=== PATIENT | male | born 1930 | race Caucasian/White ===

== ENCOUNTER → 2017-03-30 | Outpatient (CLI) | payer MEDICARE, BC ==
[~2017-03-30] MED LIST: ACET-2031 PO; ATEN-1 PO; ATEN-65 PO; CLIN300C99 PO; CLOP75TA PO; CLOP75TA43 PO; DOC100 PO; FLUT16SP19 NS; LOS50 PO; LOSA50TA68 PO; LOSA50TA72 PO; PNEU0.5D3 IM; POLY17PO PO; PSYL3.4P2 PO; SIL50 PO; SIMV-42 PO; SIMV-49 PO; SIMV-54 PO; TAM4 PO; TAMS0.4C70 PO; TRAM-420 PO; TRAM100T30 PO; [UNRECOGNIZED DRUG - CODE] OP
[2017-03-30 08:54] LABS: LDL CHOLESTEROL 90 mg/dl
== END ==
LOC: LAB 07:42
PROVIDERS: ATTEND Internal Medicine
DX: Z12.5 Encounter for screening for malignant neoplasm of prostate (principal); I10 Essential (primary) hypertension; E78.5 Hyperlipidemia, unspecified
CPT/HCPCS: 36415; G0103; 82040; 82247; 82310; 82374; 82435; 82465; 82565; 82947; 83718; 84075; 84132; 84153; 84155; 84295; 84450; 84460; 84478; 84520

== ENCOUNTER 2017-09-05 10:28 | Emergency (ER) | payer MEDICARE, BC ==
[~2017-09-05 10:28] MED LIST changes: +COLC0.6C3 PO
--- NOTE | 2017-09-05 11:01 | ER Report ---
History and Physical Time Seen By MD: 11:01 Hx. of Stated Complaint: PATIENT REPORTS THAT HE WAS GETTING INTO HIS CAR AND HIT HIS LOWER LEG ON THE CAR DOOR CAUSING A LACERATION. HPI/ROS CHIEF COMPLAINT: Laceration HISTORY OF PRESENT ILLNESS: This is an 87-year-old male who presents to the emergency department for laceration. Patient states that he was getting into his car approximately 30 minutes prior to arrival when he caught his left lateral lower leg on the car door and lacerated his leg. Patient drove himself up here for further evaluation and sutures. There is a large triangular laceration with a hematoma to the left lateral lower leg, bleeding is controlled. Patient has no other complaints no nausea, vomiting, diarrhea. REVIEW OF SYSTEMS: Respiratory: No cough, no dyspnea. Cardiovascular: No chest pain, no palpitations. Gastrointestinal: No vomiting, no abdominal pain. Musculoskeletal: No back pain. Integumentary: As above. Allergies: Coded Allergies: celecoxib (Unverified Adverse Reaction, Unknown, dizzy/ diaphoresis, ) hydrocodone bit (Unverified Adverse Reaction, Unknown, dizziness, 02/17/15) indomethacin (Unverified Adverse Reaction, Unknown, 02/17/15) Home Meds Active Scripts Simvastatin (SIMVASTATIN) 20 Mg Tablet, 1 TAB PO HS, #90 TAB 0 Refills Prov:JUANITA LLAMAS MD 09/04/17 Tramadol Hcl (TRAMADOL HCL) 50 Mg Tablet, 1-2 TAB PO Q6H Y for PAIN, #60 TAB 0 Refills Prov:JUANITA LLAMAS MD 09/04/17 Colchicine (Colchicine) 0.6 Mg Capsule, 1-2 CAP PO DIRECTED, #3 CAP 0 Refills 2 tabs po initial dose, 1 tab po one hour later Prov:JUANITA LLAMAS MD 05/04/17 Tamsulosin Hcl (TAMSULOSIN HCL) 0.4 Mg Cap.er.24h, 1 CAP PO DAILY, #90 CAP 3 Refills Prov:JUANITA LLAMAS MD 04/25/17 Clopidogrel Bisulfate (PLAVIX) 75 Mg Tablet, 1 TAB PO QDAY, #90 TAB 3 Refills Prov:JUANITA LLAMAS MD 04/17/17 Losartan Potassium (COZAAR) 50 Mg Tablet, 1 TAB PO QDAY, #90 TAB 3 Refills Prov:JUANITA LLAMAS MD 12/07/16 Atenolol (ATENOLOL) 25 Mg Tablet, 1 TAB PO QDAY, #90 TAB 4 Refills Prov:JUANITA LLAMAS MD 10/17/16 Reported Medications Psyllium Seed (METAMUCIL) 1 Each Packet, 1 PACKET PO QDAY, PACKET 12/01/13 Past Medical/Surgical History Patient has a past medical and surgical history of CVA, hypertension, hypercholesterolemia, arthritis, osteoporosis, hip fracture secondary to a fall , wears glasses, MRSA infection, total hip 2. Reviewed Nurses Notes: Yes Hx Smoking: Yes Smoking Status: Former Smoker Exposure to Second Hand Smoke?: Yes Hx Substance Use Disorder: No Hx Alcohol Use: No Constitutional Vital Sign - Last 24 Hours 09/05/17 09/05/17 09/05/17 09/05/17 10:34 10:34 11:00 11:30 Temp 98.5 Pulse 82 Resp 20 B/P (MAP) 180/84 (116) 180/84 163/83 (109) 154/99 (117) Pulse Ox 92 O2 Delivery Room Air 09/05/17 09/05/17 12:00 12:23 B/P (MAP) 150/78 (102) 141/73 (95) Physical Exam General Appearance: The patient is alert, has no immediate need for airway protection and no current signs of toxicity. Eyes: Pupils equal and round no injection. Respiratory: Chest is non tender, lungs are clear to auscultation. Cardiac: regular rate and rhythm [ ] Gastrointestinal: Abdomen is soft and non tender, no masses, bowel sounds normal. Musculoskeletal: Neck: Neck is supple and non tender. Extremities have full range of motion and are non tender. Skin: Large triangular laceration,/skin tear to the left lateral lower leg. Bleeding is controlled there is adipose tissue visible. Hematoma to the left lateral lower leg. DIFFERENTIAL DIAGNOSIS: After history and physical exam differential diagnosis was considered for laceration and skin tear. Medical Decision Making ED Course/Re-evaluation ED Course The patient was admitted to a room. A history of his core obtained. Differential diagnoses were considered. The wound was anesthetized, irrigated and repaired as noted below. Patient tolerated well. Given the patient's history of infections and difficulties changing bandages I am having him follow up with the wound clinic at [facility]. An order was sent with the patient. The patient was instructed to continue to monitor for signs of infection, keep the dressing on for the next 24-48 hours. Changing as needed. Patient had no other questions or concerns at this time and was discharged home. Procedure: Laceration repair. Verbal consent was obtained from the patient. The 10cm laceration on the left lateral lower extremity was anesthetized in the usual fashion. The wound was scrubbed, draped and explored to its base with a gloved finger. There were no deep structures involved. No tendon injury was identified. The wound was repaired with 18 simple interrupted sutures and one mattress suture, using 5-0 Prolene. The wound repair was complex. The procedure was performed by myself. Decision to Disposition Date: Sep 05, 2017 Decision to Disposition Time: 12:18 Depart Departure Latest Vital Signs Vital Signs Date Time Temp Pulse Resp B/P (MAP) Pulse Ox O2 Delivery O2 Flow Rate FiO2 09/05/17 12:23 141/73 (95) 09/05/17 10:34 98.5 82 20 92 Room Air Impression: Primary Impression: Laceration of left lower leg Condition: Improved Disposition: HOME OR SELF-CARE Referrals: JUANITA LLAMAS MD (PCP) Patient Instructions: Acute Wound Care (ED), Laceration (ED) Additional Instructions: Drink plenty of fluids. Get plenty of rest. Keep wound dry for 48 hours. Follow up with wound care to help dressing changes and wound evaluation. Follow up with your primary care provider or the Emergency Department in the next 8-10 days to have sutures removed. Monitor for signs of infection; redness, swelling, heat, discharge, increasing pain or red streaking. Take Tylenol or Ibuprofen as needed for pain. Return to the ER with any concerns. You may change dressing as needed. Problem Qualifiers Primary Impression: Laceration of left lower leg Encounter type: initial encounter Qualified Codes: S81.812A - Laceration without foreign body, left lower leg, initial encounter ROSA MABRY-JOAN Sep 05, 2017 11:01
[2017-09-05 12:23] VITALS: BP 141/73
== END 2017-09-05 12:34 | disposition home or self-care (01) ==
LOC: ER 11:02
DX: S81.812A Laceration without foreign body, left lower leg, initial encounter (principal)
CPT/HCPCS: 99283

== ENCOUNTER 2017-09-10 07:12 | Emergency (ER) | payer MEDICARE, BC ==
--- NOTE | 2017-09-10 07:15 | ER Report ---
History and Physical Time Seen By MD: 07:14 HPI/ROS CHIEF COMPLAINT: inflamation from cut HISTORY OF PRESENT ILLNESS:Patient is an 87-year-old male who had a laceration to his lower extremity that occurred a few days ago. He did have a primary repair of that laceration up and now is concerned about possible infection which is why he presents to the emergency department today. REVIEW OF SYSTEMS: Constitutional: No fever, no chills. Respiratory: No cough, no shortness of breath. Gastrointestinal: No abdominal pain, no vomiting. Skin: Laceration to lower extremity Neurological: No headache. Allergies: Coded Allergies: celecoxib (Verified Adverse Reaction, Unknown, dizzy/ diaphoresis, 09/19/17 ) hydrocodone bit (Verified Adverse Reaction, Unknown, dizziness, 09/19/17) indomethacin (Verified Adverse Reaction, Unknown, 09/19/17) Home Meds Active Scripts Sulfamethoxazole/Trimet 800-160 Mg Tab (BACTRIM DS TABLET) 1 Each Tablet, 2 TAB PO Q12H for 7 Days, #28 MG 0 Refills TAKE ONE TABLET BY MOUTH EVERY TWELVE HOURS Prov:YO STANFORD MD 09/10/17 Simvastatin (SIMVASTATIN) 20 Mg Tablet, 1 TAB PO HS, #90 TAB 0 Refills Prov:JUANITA LLAMAS MD 09/04/17 Tramadol Hcl (TRAMADOL HCL) 50 Mg Tablet, 1-2 TAB PO Q6H Y for PAIN, #60 TAB 0 Refills Prov:JUANITA LLAMAS MD 09/04/17 Colchicine (Colchicine) 0.6 Mg Capsule, 1-2 CAP PO DIRECTED, #3 CAP 0 Refills 2 tabs po initial dose, 1 tab po one hour later Prov:JUANITA LLAMAS MD 05/04/17 Tamsulosin Hcl (TAMSULOSIN HCL) 0.4 Mg Cap.er.24h, 1 CAP PO DAILY, #90 CAP 3 Refills Prov:JUANITA LLAMAS MD 04/25/17 Clopidogrel Bisulfate (PLAVIX) 75 Mg Tablet, 1 TAB PO QDAY, #90 TAB 3 Refills Prov:JUANITA LLAMAS MD 04/17/17 Losartan Potassium (COZAAR) 50 Mg Tablet, 1 TAB PO QDAY, #90 TAB 3 Refills Prov:JUANITA LLAMAS MD 12/07/16 Atenolol (ATENOLOL) 25 Mg Tablet, 1 TAB PO QDAY, #90 TAB 4 Refills Prov:JUANITA LLAMAS MD 10/17/16 Reported Medications Psyllium Seed (METAMUCIL) 1 Each Packet, 1 PACKET PO QDAY, PACKET 12/01/13 Past Medical/Surgical History Past medical history for stroke currently on Plavix, history of benign prostatic hypertrophy, hip replacement, hypercholesterolemia, gout Hx Smoking: Yes Smoking Status: Former Smoker Exposure to Second Hand Smoke?: Yes Hx Substance Use Disorder: No Hx Alcohol Use: No Constitutional Physical Exam General/Constitutional: Patient is awake, alert, nontoxic and in no acute respiratory distress. Head: Normocephalic and atraumatic. Eyes: Conjunctival clear, Sclera are clear and anicteric. Neck: Supple, Extremities: Patient has a V-shaped laceration that has been repaired primarily with Prolene sutures to the left leg. There is an area of ecchymosis in the center of the cut. There does not appear to be any expressible pus or fluid. There is some surrounding erythema suggesting possible infection. Neuro: Alert and oriented X3, Patient has normal gait. Skin: No other rashes, skin is warm dry and well perfused. Medical Decision Making Data Points Laboratory Hematology Test 09/10/17 08:04 Red Blood Count 4.55 M/uL (4.00-5.60) Mean Corpuscular Volume 92.8 fL (80.0-96.0) Mean Corpuscular Hemoglobin 32.0 pg (26.0-33.0) Mean Corpuscular Hemoglobin Concent 34.5 g/dL (32.0-36.0) Red Cell Distribution Width 13.3 % (11.5-14.5) Mean Platelet Volume 8.2 fL (7.2-11.1) Neutrophils (%) (Auto) 67.3 % (39.4-72.5) Lymphocytes (%) (Auto) 20.6 % (17.6-49.6) Monocytes (%) (Auto) 9.8 % (4.1-12.4) Eosinophils (%) (Auto) 1.7 % (0.4-6.7) Basophils (%) (Auto) 0.6 % (0.3-1.4) Nucleated RBC Relative Count (auto) 0.0 /100WBC Neutrophils # (Auto) 4.1 K/uL (2.0-7.4) Lymphocytes # (Auto) 1.3 K/uL (1.3-3.6) Monocytes # (Auto) 0.6 K/uL (0.3-1.0) Eosinophils # (Auto) 0.1 K/uL (0.0-0.5) Basophils # (Auto) 0.0 K/uL (0.0-0.1) Nucleated RBC Absolute Count (auto) 0.00 K/uL Sodium Level 135 mmol/L (137-145) Potassium Level 4.2 mmol/L (3.5-5.0) Chloride Level 97 mmol/L (98-107) Carbon Dioxide Level 26 mmol/L (22-30) Blood Urea Nitrogen 11 mg/dl (9-21) Creatinine 0.90 mg/dl (0.66-1.25) Glomerular Filtration Rate Calc > 60.0 Random Glucose 105 mg/dl (75-110) Calcium Level 8.4 mg/dl (8.4-10.2) Chemistry Test 09/10/17 08:04 White Blood Count 6.1 k/uL (4.5-11.0) Red Blood Count 4.55 M/uL (4.00-5.60) Hemoglobin 14.6 g/dL (14.0-18.0) Hematocrit 42.2 % (42.0-52.0) Mean Corpuscular Volume 92.8 fL (80.0-96.0) Mean Corpuscular Hemoglobin 32.0 pg (26.0-33.0) Mean Corpuscular Hemoglobin Concent 34.5 g/dL (32.0-36.0) Red Cell Distribution Width 13.3 % (11.5-14.5) Platelet Count 181 K/uL (150-450) Mean Platelet Volume 8.2 fL (7.2-11.1) Neutrophils (%) (Auto) 67.3 % (39.4-72.5) Lymphocytes (%) (Auto) 20.6 % (17.6-49.6) Monocytes (%) (Auto) 9.8 % (4.1-12.4) Eosinophils (%) (Auto) 1.7 % (0.4-6.7) Basophils (%) (Auto) 0.6 % (0.3-1.4) Nucleated RBC Relative Count (auto) 0.0 /100WBC Neutrophils # (Auto) 4.1 K/uL (2.0-7.4) Lymphocytes # (Auto) 1.3 K/uL (1.3-3.6) Monocytes # (Auto) 0.6 K/uL (0.3-1.0) Eosinophils # (Auto) 0.1 K/uL (0.0-0.5) Basophils # (Auto) 0.0 K/uL (0.0-0.1) Nucleated RBC Absolute Count (auto) 0.00 K/uL Glomerular Filtration Rate Calc > 60.0 Calcium Level 8.4 mg/dl (8.4-10.2) ED Course/Re-evaluation Clinical Indication for ER IV: IV Access ED Course Plan will be to check CBC electrolytes. We will give IV dose of Rocephin. The wound was examined and every other stitch was removed no purulent material was expressed. Plan will be to place the patient on oral antibiotics and have him return in 24 hours for wound recheck. Decision to Disposition Date: Sep 10, 2017 Decision to Disposition Time: 09:00 Depart Departure Latest Vital Signs Impression: Primary Impression: Wound infection Condition: Improved Disposition: HOME OR SELF-CARE Referrals: JUANITA LLAMAS MD (PCP) New Scripts Sulfamethoxazole/Trimet 800-160 Mg Tab (BACTRIM DS TABLET) 1 Each Tablet 2 TAB PO Q12H for 7 Days, #28 MG 0 Refills TAKE ONE TABLET BY MOUTH EVERY TWELVE HOURS Prov: YO STANFORD MD 09/10/17 Patient Instructions: Cellulitis (ED) Additional Instructions: Return to the emergency department in 24 hours for wound check. Take your antibiotics as directed. If any time he developed a fever of 100.4 or higher you should be reevaluated immediately YO STANFORD MD Sep 10, 2017 07:15
[2017-09-10 08:14] LABS: PLATELET COUNT, AUTOMATED 181 K/uL (150-450)
[2017-09-10] MEDS ORDERED: SULF-198 PO (08:29)
[2017-09-10 08:31] VITALS: BP 129/62
[2017-09-10] MEDS ORDERED: cefTRIAXone 1 GM VIAL IVP SCH (09:00)
== END 2017-09-10 08:30 | disposition home or self-care (01) ==
LOC: ER 07:20
DX: L08.89 Other specified local infections of the skin and subcutaneous tissue (principal); S81.812D Laceration without foreign body, left lower leg, subsequent encounter
CPT/HCPCS: 85025; 96374; 99283; J0696; 82310; 82374; 82435; 82565; 82947; 84132; 84295; 84520

== ENCOUNTER 2017-09-11 08:56 | Emergency (ER) | payer MEDICARE, BC ==
[~2017-09-11 08:56] MED LIST changes: +SULF-198 PO
--- NOTE | 2017-09-11 08:57 | ER Report ---
History and Physical Time Seen By MD: 08:57 HPI/ROS CHIEF COMPLAINT: Follow-up wound check HISTORY OF PRESENT ILLNESS: Patient is an 87 year old male who returns for wound evaluation. Patient was seen by me yesterday after he was concerned about possible cellulitis complicating his laceration repair. Patient was found to have cellulitis at that time. Every other suture was removed to allow for any type of drainage that might occur. And patient was started on double strength Bactrim 2 tablets twice a day. He reports interval improvement of symptoms overnight. He is taking the antibiotics as prescribed. Tetanus status was updated yesterday Allergies: Coded Allergies: celecoxib (Unverified Adverse Reaction, Unknown, dizzy/ diaphoresis, ) hydrocodone bit (Unverified Adverse Reaction, Unknown, dizziness, 09/10/17) indomethacin (Unverified Adverse Reaction, Unknown, 09/10/17) Home Meds Active Scripts Sulfamethoxazole/Trimet 800-160 Mg Tab (BACTRIM DS TABLET) 1 Each Tablet, 2 TAB PO Q12H for 7 Days, #28 MG 0 Refills TAKE ONE TABLET BY MOUTH EVERY TWELVE HOURS Prov:YO STANFORD MD 09/10/17 Simvastatin (SIMVASTATIN) 20 Mg Tablet, 1 TAB PO HS, #90 TAB 0 Refills Prov:JUANITA LLAMAS MD 09/04/17 Tramadol Hcl (TRAMADOL HCL) 50 Mg Tablet, 1-2 TAB PO Q6H Y for PAIN, #60 TAB 0 Refills Prov:JUANITA LLAMAS MD 09/04/17 Colchicine (Colchicine) 0.6 Mg Capsule, 1-2 CAP PO DIRECTED, #3 CAP 0 Refills 2 tabs po initial dose, 1 tab po one hour later Prov:JUANITA LLAMAS MD 05/04/17 Tamsulosin Hcl (TAMSULOSIN HCL) 0.4 Mg Cap.er.24h, 1 CAP PO DAILY, #90 CAP 3 Refills Prov:JUANITA LLAMAS MD 04/25/17 Clopidogrel Bisulfate (PLAVIX) 75 Mg Tablet, 1 TAB PO QDAY, #90 TAB 3 Refills Prov:JUANITA LLAMAS MD 04/17/17 Losartan Potassium (COZAAR) 50 Mg Tablet, 1 TAB PO QDAY, #90 TAB 3 Refills Prov:JUANITA LLAMAS MD 12/07/16 Atenolol (ATENOLOL) 25 Mg Tablet, 1 TAB PO QDAY, #90 TAB 4 Refills Prov:JUANITA LLAMAS MD 10/17/16 Reported Medications Psyllium Seed (METAMUCIL) 1 Each Packet, 1 PACKET PO QDAY, PACKET 12/01/13 Past Medical/Surgical History Noncontributory towards this chief complaint Hx Smoking: Yes Smoking Status: Former Smoker Exposure to Second Hand Smoke?: Yes Hx Substance Use Disorder: No Hx Alcohol Use: No Physical Exam General appearance: Alert no distress. Musculoskeletal: Interval wound healing shows improvement there is minimal to no erythema now surrounding the wound. No purulent discharge from the wound. Wound dehiscence. Medical Decision Making ED Course/Re-evaluation ED Course 09/11/2017 9:03:54 am plan at this time I will be to have the patient continue antibiotics until complete. He can follow-up on September 16 off for evaluation and potential suture removal. Decision to Disposition Date: Sep 11, 2017 Decision to Disposition Time: 09:04 Depart Departure Impression: Primary Impression: Visit for wound check Condition: Improved Disposition: HOME OR SELF-CARE Referrals: JUANITA LLAMAS MD (PCP) 2 Days if symptoms persist Patient Instructions: Acute Wound Care (ED) YO STANFORD MD Sep 11, 2017 08:57
[2017-09-11 08:59] VITALS: BP 147/63
== END 2017-09-11 09:25 | disposition home or self-care (01) ==
LOC: ER 09:22
DX: Z09 Encounter for follow-up examination after completed treatment for conditions other than malignant neoplasm (principal)
CPT/HCPCS: 99281

== ENCOUNTER 2017-09-14 13:06 | Emergency (ER) | payer MEDICARE, BC ==
--- NOTE | 2017-09-14 13:16 | ER Report ---
History and Physical Time Seen By MD: 13:16 (FUNMILAYO MCGINNIS MD) Time Seen By MD: 13:30 [facility] HPI/ROS CHIEF COMPLAINT: Suture removal HISTORY OF PRESENT ILLNESS: This is an 87-year-old male who presents to the emergency department for suture removal. Patient was here last week for a large laceration to the left lateral lower extremity, he did injure himself on a car door area patient was reevaluated couple days later as he noticed some increased swelling, when he was started on Bactrim for an infection. Patient states the infection is better however the wound has changed to a deeper purplish hue. Minimal serous drainage. I did tell the patient that at this time I feel like we should leave the sutures in place. We will redress the wound, have the patient return in 2 days for reevaluation. Patient is in agreement with this. REVIEW OF SYSTEMS: Respiratory: No cough, no dyspnea. Cardiovascular: No chest pain, no palpitations. Gastrointestinal: No vomiting, no abdominal pain. Musculoskeletal: No back pain. Integument hearing: As above. [facility] Allergies: Coded Allergies: celecoxib (Verified Adverse Reaction, Unknown, dizzy/ diaphoresis, 09/11/17) hydrocodone bit (Verified Adverse Reaction, Unknown, dizziness, 09/11/17) indomethacin (Verified Adverse Reaction, Unknown, 09/11/17) Home Meds Active Scripts Sulfamethoxazole/Trimet 800-160 Mg Tab (BACTRIM DS TABLET) 1 Each Tablet, 2 TAB PO Q12H for 7 Days, #28 MG 0 Refills TAKE ONE TABLET BY MOUTH EVERY TWELVE HOURS Prov:YO STANFORD MD 09/10/17 Simvastatin (SIMVASTATIN) 20 Mg Tablet, 1 TAB PO HS, #90 TAB 0 Refills Prov:JUANITA LLAMAS MD 09/04/17 Tramadol Hcl (TRAMADOL HCL) 50 Mg Tablet, 1-2 TAB PO Q6H Y for PAIN, #60 TAB 0 Refills Prov:JUANITA LLAMAS MD 09/04/17 Colchicine (Colchicine) 0.6 Mg Capsule, 1-2 CAP PO DIRECTED, #3 CAP 0 Refills 2 tabs po initial dose, 1 tab po one hour later Prov:JUANITA LLAMAS MD 05/04/17 Tamsulosin Hcl (TAMSULOSIN HCL) 0.4 Mg Cap.er.24h, 1 CAP PO DAILY, #90 CAP 3 Refills Prov:JUANITA LLAMAS MD 04/25/17 Clopidogrel Bisulfate (PLAVIX) 75 Mg Tablet, 1 TAB PO QDAY, #90 TAB 3 Refills Prov:JUANITA LLAMAS MD 04/17/17 Losartan Potassium (COZAAR) 50 Mg Tablet, 1 TAB PO QDAY, #90 TAB 3 Refills Prov:JUANITA LLAMAS MD 12/07/16 Atenolol (ATENOLOL) 25 Mg Tablet, 1 TAB PO QDAY, #90 TAB 4 Refills Prov:JUANITA LLAMAS MD 10/17/16 Reported Medications Psyllium Seed (METAMUCIL) 1 Each Packet, 1 PACKET PO QDAY, PACKET 12/01/13 Past Medical/Surgical History The patient has a past medical and surgical history of CVA, hypertension, hypercholesterolemia, arthritis, osteoporosis, hip fracture secondary to fall, wears glasses, hard of hearing, MRSA infection, bilateral hip replacements. 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 Eyes: Pupils equal and round no injection. Respiratory: Chest is non tender, lungs are clear to auscultation. Cardiac: regular rate and rhythm Gastrointestinal: Abdomen is soft and non tender, no masses, bowel sounds normal. Musculoskeletal: Neck: Neck is supple and non tender. Extremities have full range of motion and are non tender. Skin: Healing wound to the left lower extremity, deep purple discoloration to the triangular flap, scant amount of oozing serous to serous sanguinous fluid. No purulent drainage. DIFFERENTIAL DIAGNOSIS: After history and physical exam differential diagnosis was considered for healing wound, cellulitis, and contusion. (ROSA MABRY) Medical Decision Making ED Course/Re-evaluation ED Course The patient was admitted to room. A history and physical were obtained. After evaluating the wound, I did not feel that the sutures that remained in place should come out at this time, patient continues to take the antibiotics as prescribed. I did tell the patient to go home continue to monitor for signs of infection return on Sunday for reevaluation at this time we will likely remove the remainder of the sutures. Initially when I saw this patient I did write a prescription for him to follow up with the wound care clinic as well, I did reiterate that he would benefit from wound care evaluation starting next week. The patient was in agreement with this plan of care and discharged home tonight. Patient was also instructed to return to the ER for any other concerns or worsening symptoms. Decision to Disposition Date: Sep 14, 2017 Decision to Disposition Time: 13:40 (ROSA MABRY) Depart Departure Latest Vital Signs Vital Signs Date Time Temp Pulse Resp B/P (MAP) Pulse Ox O2 Delivery O2 Flow Rate FiO2 09/14/17 13:25 98.5 78 18 117/55 93 Room Air (ROSA MABRYJOAN) Impression: Primary Impression: Laceration of left lower leg Condition: Condition Unchanged Disposition: HOME OR SELF-CARE Referrals: JUANITA LLAMAS MD (PCP) Additional Instructions: Drink plenty of fluids. Get plenty of rest. Be sure to follow up with wound care clinic as previously scheduled. Return to the ER Sunday for reevaluation of the wound and possible removal of the rest of the sutures. Return sooner if you are concerned about the wound. Continue to monitor for signs of infection, continue taking your antibiotics. Problem Qualifiers Primary Impression: Laceration of left lower leg Encounter type: subsequent encounter Qualified Codes: S81.812D - Laceration without foreign body, left lower leg, subsequent encounter FUNMILAYO MCGINNIS MD Sep 14, 2017 13:16 ROSA MABRY Sep 14, 2017 13:39
[2017-09-14 13:25] VITALS: BP 117/55
== END 2017-09-14 14:00 | disposition home or self-care (01) ==
LOC: ER 13:19
DX: S81.812D Laceration without foreign body, left lower leg, subsequent encounter (principal)
CPT/HCPCS: 99281

== ENCOUNTER 2017-09-16 07:55 | Emergency (ER) | payer MEDICARE, BC ==
[2017-09-16 08:03] VITALS: BP 136/55
--- NOTE | 2017-09-16 08:11 | ER Report ---
History and Physical Time Seen By MD: 08:10 Hx. of Stated Complaint: pt wants stitches removed from L lower leg, skin is dry and warm and healing HPI/ROS 87-year-old male who lacerated his left lower extremity on a car door 10 days ago presents to the emergency department for suture removal. He also presented to the emergency department 3 days ago for suture removal, but was told by a mid -level provider's place the sutures that the wound is not fully closed yet. The patient states he has been keeping the wound clean and dry. 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 He was given a referral for wound care clinic, but has not sought care at the clinic as of yet. Otherwise has no complaints. Remainder of the 14 system rev: Yes Allergies: Coded Allergies: celecoxib (Verified Adverse Reaction, Unknown, dizzy/ diaphoresis, 09/11/17) hydrocodone bit (Verified Adverse Reaction, Unknown, dizziness, 09/11/17) indomethacin (Verified Adverse Reaction, Unknown, 09/11/17) Home Meds Active Scripts Sulfamethoxazole/Trimet 800-160 Mg Tab (BACTRIM DS TABLET) 1 Each Tablet, 2 TAB PO Q12H for 7 Days, #28 MG 0 Refills TAKE ONE TABLET BY MOUTH EVERY TWELVE HOURS Prov:YO STANFORD MD 09/10/17 Simvastatin (SIMVASTATIN) 20 Mg Tablet, 1 TAB PO HS, #90 TAB 0 Refills Prov:JUANITA LLAMAS MD 09/04/17 Tramadol Hcl (TRAMADOL HCL) 50 Mg Tablet, 1-2 TAB PO Q6H Y for PAIN, #60 TAB 0 Refills Prov:JUANITA LLAMAS MD 09/04/17 Colchicine (Colchicine) 0.6 Mg Capsule, 1-2 CAP PO DIRECTED, #3 CAP 0 Refills 2 tabs po initial dose, 1 tab po one hour later Prov:JUANITA LLAMAS MD 05/04/17 Tamsulosin Hcl (TAMSULOSIN HCL) 0.4 Mg Cap.er.24h, 1 CAP PO DAILY, #90 CAP 3 Refills Prov:JUANITA LLAMAS MD 04/25/17 Clopidogrel Bisulfate (PLAVIX) 75 Mg Tablet, 1 TAB PO QDAY, #90 TAB 3 Refills Prov:JUANITA LLAMAS MD 04/17/17 Losartan Potassium (COZAAR) 50 Mg Tablet, 1 TAB PO QDAY, #90 TAB 3 Refills Prov:JUANITA LLAMAS MD 12/07/16 Atenolol (ATENOLOL) 25 Mg Tablet, 1 TAB PO QDAY, #90 TAB 4 Refills Prov:JUANITA LLAMAS MD 10/17/16 Reported Medications Psyllium Seed (METAMUCIL) 1 Each Packet, 1 PACKET PO QDAY, PACKET 12/01/13 Reviewed Nurses Notes: Yes Old Medical Records Reviewed: Yes Hx Smoking: Yes Smoking Status: Former Smoker Exposure to Second Hand Smoke?: Yes Hx Substance Use Disorder: No Hx Alcohol Use: No Constitutional Vital Sign - Last 24 Hours 09/16/17 08:03 Temp 97.9 Pulse 80 Resp 20 B/P (MAP) 136/55 Pulse Ox 94 O2 Delivery Room Air Physical Exam General Appearance: The patient is alert, has no immediate need for airway protection and no current signs of toxicity. Eyes: Pupils equal and round no injection. Respiratory: Chest is non tender, lungs are clear to auscultation. Cardiac: regular rate and rhythm Gastrointestinal: Abdomen is soft and non tender, no masses, bowel sounds normal. Extremities have full range of motion. Moderate pitting edema to LLE Skin: Sutures in place in LLE. There is a hematoma at the site of the sutures. No erythema. Not full closure of wound. No evidence of infection. DIFFERENTIAL DIAGNOSIS: After history and physical exam differential diagnosis was considered for wound infection, closure failure Medical Decision Making ED Course/Re-evaluation ED Course Presents to the emergency department for a wound check and suture removal. No evidence of wound infection, but given edema in lower extremity and is still not fully closed and sutures are not ready for removal at this time. I told the patient to either return to the emergency department or go to his primary care physician on Sunday, September 19 for a wound check and likely suture removal. He was also previously given a referral to the wound care clinic, and I encouraged him to follow up there as well. Decision to Disposition Date: Sep 16, 2017 Decision to Disposition Time: 08:10 Depart Departure Latest Vital Signs Vital Signs Date Time Temp Pulse Resp B/P (MAP) Pulse Ox O2 Delivery O2 Flow Rate FiO2 09/16/17 08:03 97.9 80 20 136/55 94 Room Air Impression: Primary Impression: Visit for wound check Condition: Improved Disposition: HOME OR SELF-CARE Referrals: JUANITA LLAMAS MD (PCP) Additional Instructions: Continue to keep wound clean and dry. Return to the emergency department or your primary care doctor on Sunday, September 19 for suture removal. Also, please follow-up with the wound care clinic. FUNMILAYO MCGINNIS MD Sep 16, 2017 08:11
== END 2017-09-16 08:22 | disposition home or self-care (01) ==
LOC: ER 08:11
DX: S81.812D Laceration without foreign body, left lower leg, subsequent encounter (principal)
CPT/HCPCS: 99281

== ENCOUNTER 2017-09-19 08:25 | Emergency (ER) | payer MEDICARE, BC ==
--- NOTE | 2017-09-19 08:33 | ER Report ---
History and Physical Time Seen By MD: 08:31 HPI/ROS CHIEF COMPLAINT: Wound check HISTORY OF PRESENT ILLNESS: 87-year-old male comes back to the emergency department for wound check patient was seen here 4 days ago with a repeat visit for a leg wound received by car door there were multiple sutures placed to tack down and obvious skin flap he was told to come back today for suture removal he will has no additional complaints little bit of swelling edema no pus no bleeding wound is otherwise unremarkable REVIEW OF SYSTEMS: Respiratory: No cough, no dyspnea. Cardiovascular: No chest pain, no palpitations. Gastrointestinal: No vomiting, no abdominal pain. Musculoskeletal: No back pain. Remainder of the 14 system rev: Yes Allergies: Coded Allergies: celecoxib (Verified Adverse Reaction, Unknown, dizzy/ diaphoresis, 09/19/17 ) hydrocodone bit (Verified Adverse Reaction, Unknown, dizziness, 09/19/17) indomethacin (Verified Adverse Reaction, Unknown, 09/19/17) Home Meds Active Scripts Sulfamethoxazole/Trimet 800-160 Mg Tab (BACTRIM DS TABLET) 1 Each Tablet, 2 TAB PO Q12H for 7 Days, #28 MG 0 Refills TAKE ONE TABLET BY MOUTH EVERY TWELVE HOURS Prov:YO STANFORD MD 09/10/17 Simvastatin (SIMVASTATIN) 20 Mg Tablet, 1 TAB PO HS, #90 TAB 0 Refills Prov:JUANITA LLAMAS MD 09/04/17 Tramadol Hcl (TRAMADOL HCL) 50 Mg Tablet, 1-2 TAB PO Q6H Y for PAIN, #60 TAB 0 Refills Prov:JUANITA LLAMAS MD 09/04/17 Colchicine (Colchicine) 0.6 Mg Capsule, 1-2 CAP PO DIRECTED, #3 CAP 0 Refills 2 tabs po initial dose, 1 tab po one hour later Prov:JUANITA LLAMAS MD 05/04/17 Tamsulosin Hcl (TAMSULOSIN HCL) 0.4 Mg Cap.er.24h, 1 CAP PO DAILY, #90 CAP 3 Refills Prov:JUANITA LLAMAS MD 04/25/17 Clopidogrel Bisulfate (PLAVIX) 75 Mg Tablet, 1 TAB PO QDAY, #90 TAB 3 Refills Prov:JUANITA LLAMAS MD 04/17/17 Losartan Potassium (COZAAR) 50 Mg Tablet, 1 TAB PO QDAY, #90 TAB 3 Refills Prov:JUANITA LLAMAS MD 12/07/16 Atenolol (ATENOLOL) 25 Mg Tablet, 1 TAB PO QDAY, #90 TAB 4 Refills Prov:JUANITA LLAMAS MD 10/17/16 Reported Medications Psyllium Seed (METAMUCIL) 1 Each Packet, 1 PACKET PO QDAY, PACKET 12/01/13 Reviewed Nurses Notes: Yes Old Medical Records Reviewed: Yes Hx Smoking: Yes Smoking Status: Former Smoker Exposure to Second Hand Smoke?: Yes Hx Substance Use Disorder: No Hx Alcohol Use: No Physical Exam General appearance: [Alert no distress.] Respiratory: Chest is non tender, lungs are clear to auscultation. Cardiac: Regular rate and rhythm [ ] Left leg examination on the lateral aspect of left leg just proximal to the left ankle he's got Efe angulated wound is sutured approximately 6-8 cm angulated no obvious infection the wound shows no dehiscence at this time multiple sutures placed DIFFERENTIAL DIAGNOSIS: After history and physical exam differential diagnosis was considered for wound check Medical Decision Making ED Course/Re-evaluation ED Course ED clinical course 87-year-old male here for wound check multiple sutures placed told to come back here for reevaluation and suture removal this will be performed suture removal once completed we'll put Steri-Strips over I will have the lean specialist come to the emergency room visiting the patient arranging for current and follow-up wound care management for the wound Decision to Disposition Date: Sep 19, 2017 Decision to Disposition Time: 08:33 Depart Departure Impression: Primary Impression: Visit for wound check Condition: Improved Disposition: HOME OR SELF-CARE Referrals: JUANITA LLAMAS MD (PCP) 5 Days Patient Instructions: Acute Wound Care (DC), Chronic Wound Care (DC) ILDEFONSO SANDHU MD Sep 19, 2017 08:33
[2017-09-19 09:20] VITALS: BP 118/45
== END 2017-09-19 09:40 | disposition home or self-care (01) ==
LOC: ER 08:32
DX: Z48.00 Encounter for change or removal of nonsurgical wound dressing (principal)
CPT/HCPCS: 97163; 99281

== ENCOUNTER → 2017-11-05 | Outpatient (CLI) | payer MEDICARE, BC ==
[2017-11-05 06:24] LABS: LDL CHOLESTEROL 78 mg/dl
== END ==
LOC: LAB 05:50
PROVIDERS: ATTEND Internal Medicine
DX: E78.2 Mixed hyperlipidemia (principal); I10 Essential (primary) hypertension
CPT/HCPCS: 36415; 82040; 82247; 82310; 82374; 82435; 82465; 82565; 82947; 83718; 84075; 84132; 84155; 84295; 84450; 84460; 84478; 84520

== ENCOUNTER 2018-04-24 06:26 | Emergency (ER) | payer MEDICARE, BC ==
[~2018-04-24 06:26] MED LIST changes: -LOSA50TA72 PO; +LOSA50TA80 PO
[2018-04-24] MEDS ORDERED: LOSARTAN POTASSIUM 50 MG TAB PO ONE (06:45)
[2018-04-24] MEDS ORDERED: ENT KIT ONE (06:47)
--- NOTE | 2018-04-24 07:14 | ER Report ---
History and Physical Time Seen By MD: 06:45 Hx. of Stated Complaint: PT REPORTS NOSEBLEED THAT STARTED 1 HOUR AGO. HPI/ROS CHIEF COMPLAINT: Nosebleed HISTORY OF PRESENT ILLNESS: 88-year-old male history of hypertension on Plavix comes emergency Department with a unilateral nosebleed started a couple hours ago is been seen here before for similar complaints of blood pressures 201/98 Patient states that this bleeding was nontraumatic began spontaneously he tried to stop on his own was not successful is no additional complaints. Patient is denying chest pain shortness of breath nausea vomiting diarrhea fever chills REVIEW OF SYSTEMS: Respiratory: No cough, no dyspnea. Cardiovascular: No chest pain, no palpitations. Gastrointestinal: No vomiting, no abdominal pain. Musculoskeletal: No back pain. Remainder of the 14 system rev: Yes Allergies: Coded Allergies: celecoxib (Verified Adverse Reaction, Unknown, dizzy/ diaphoresis, 04/24/18) hydrocodone bit (Verified Adverse Reaction, Unknown, dizziness, 04/24/18) indomethacin (Verified Adverse Reaction, Unknown, 04/24/18) Home Meds Active Scripts Tamsulosin Hcl (TAMSULOSIN HCL) 0.4 Mg Cap.er.24h, 1 CAP PO DAILY, #90 CAP 0 Refills Prov:JUANITA LLAMAS MD 03/25/18 Atenolol (ATENOLOL) 25 Mg Tablet, 1 TAB PO QDAY, #90 TAB 3 Refills Prov:JUANITA LLAMAS MD 12/26/17 Simvastatin (SIMVASTATIN) 20 Mg Tablet, 1 TAB PO HS for 90 Days, #90 TAB 4 Refills Prov:JUANITA LLAMAS MD 11/30/17 Losartan Potassium (COZAAR) 50 Mg Tablet, 1 TAB PO QDAY, #90 TAB 3 Refills Prov:JUANITA LLAMAS MD 11/28/17 Colchicine (Colchicine) 0.6 Mg Capsule, 1-2 CAP PO DIRECTED, #3 CAP 0 Refills 2 tabs po initial dose, 1 tab po one hour later Prov:JUANITA LLAMAS MD 05/04/17 Clopidogrel Bisulfate (PLAVIX) 75 Mg Tablet, 1 TAB PO QDAY, #90 TAB 3 Refills Prov:JUANITA LLAMAS MD 04/17/17 Discontinued Reported Medications Psyllium Seed (METAMUCIL) 1 Each Packet, 1 PACKET PO QDAY, PACKET 12/01/13 Discontinued Scripts Tramadol Hcl (TRAMADOL HCL) 50 Mg Tablet, 1-2 TAB PO Q6H PRN for PAIN, #60 TAB 0 Refills Prov:JUANITA LLAMAS MD 12/26/17 Sulfamethoxazole/Trimet 800-160 Mg Tab (BACTRIM DS TABLET) 1 Each Tablet, 2 TAB PO Q12H for 7 Days, #28 MG 0 Refills TAKE ONE TABLET BY MOUTH EVERY TWELVE HOURS Prov:YO STANFORD MD 09/10/17 Reviewed Nurses Notes: Yes Old Medical Records Reviewed: Yes Hx Smoking: Yes Smoking Status: Former Smoker Exposure to Second Hand Smoke?: Yes Hx Substance Use Disorder: No Hx Alcohol Use: No Constitutional Vital Sign - Last 24 Hours 04/24/18 06:29 Temp 97.8 Pulse 77 Resp 22 B/P (MAP) 201/94 Pulse Ox 94 O2 Delivery Room Air Physical Exam General Appearance: The patient is alert, has no immediate need for airway protection and no current signs of toxicity. [ ] Eyes: Pupils equal and round no injection. Respiratory: Chest is non tender, lungs are clear to auscultation. Cardiac: regular rate and rhythm [ ] Gastrointestinal: Abdomen is soft and non tender, no masses, bowel sounds normal. Musculoskeletal: Neck: Neck is supple and non tender. Extremities have full range of motion and are non tender. Skin: No rashes or lesions. HEENT exam patient with right-sided epistaxis dried blood on the nasal passages Rhino Rocket placed before my exam DIFFERENTIAL DIAGNOSIS: After history and physical exam differential diagnosis was considered for epistaxis I pretension Medical Decision Making ED Course/Re-evaluation ED Course 88-year-old male comes emergency Department today with epistaxis of the right naris blood pressure was 201/90 8.2 a clonidine is now 146/64 have him continue his normal blood pressure medicines Rhino Rocket was placed prior to my acquisition of the patient is had no bleeding subsequently since leave the Rhino Rocket in place have him follow-up with primary care return to have the Rhino Rocket removed necessary diagnosis of hypertension and epistaxis have him continue meds as prescribed Decision to Disposition Date: Apr 24, 2018 Decision to Disposition Time: 07:49 Depart Departure Latest Vital Signs Vital Signs Date Time Temp Pulse Resp B/P (MAP) Pulse Ox O2 Delivery O2 Flow Rate FiO2 04/24/18 06:29 97.8 77 22 201/94 94 Room Air Impression: Primary Impression: Epistaxis Additional Impression: Hypertension Condition: Improved Disposition: HOME OR SELF-CARE Referrals: JUANITA LLAMAS MD (PCP) 2 Days Patient Instructions: Nosebleed (ED) Problem Qualifiers ILDEFONSO SANDHU MD Apr 24, 2018 07:14
[2018-04-24] MEDS ORDERED: cloNIDine HCL 0.1 MG TAB PO ONE (07:15)
[2018-04-24 07:45] VITALS: BP 141/64
[2018-04-24] MEDS ORDERED: PHENYLEPHRINE 0.5% 15 ML BTL ONE (08:15)
[2018-04-24] MEDS ORDERED: EPINEPHrine 0.1% NA SOL 30 ML ONE (08:15)
[2018-04-25] MEDS ORDERED: [UNRECOGNIZED DRUG - CODE] PO (15:15)
[2018-04-25] MEDS ORDERED: TRAM-420 PO (16:04)
[2018-04-30] MEDS ORDERED: LOSA100T75 PO (15:17)
== END 2018-04-24 08:01 | disposition home or self-care (01) ==
LOC: ER 07:07
DX: R04.0 Epistaxis (principal); I10 Essential (primary) hypertension
CPT/HCPCS: 30901; 99283; A9270

== ENCOUNTER → 2018-05-14 | Outpatient (CLI) | payer MEDICARE, BC ==
[~2018-05-14] MED LIST changes: +LOSA100T75 PO; +[UNRECOGNIZED DRUG - CODE] PO
[2018-05-14 06:46] LABS: LDL CHOLESTEROL 87 mg/dl
== END ==
LOC: LAB 06:05
PROVIDERS: ATTEND Internal Medicine
DX: E78.2 Mixed hyperlipidemia (principal); R73.01 Impaired fasting glucose; I10 Essential (primary) hypertension
CPT/HCPCS: 36415; 82040; 82247; 82310; 82374; 82435; 82465; 82565; 82947; 83036; 83718; 84075; 84132; 84155; 84295; 84450; 84460; 84478; 84520

== ENCOUNTER 2018-08-20 09:35 | Emergency (ER) | payer MEDICARE, BC ==
[~2018-08-20 09:35] MED LIST changes: +TAMS0.4C25 PO
[2018-08-20] MEDS ORDERED: cefTRIAXone 1 GM VIAL IVP ONE (10:10)
--- NOTE | 2018-08-20 10:26 | ER Report ---
History and Physical Time Seen By MD: 10:12 Hx. of Stated Complaint: INJURY TO LEFT FA LAST SUNDAY, INCREASED SWELLING/REDNESS, PT REPORTS "IT'S NOT HEALING IT SHOULD" HPI/ROS CHIEF COMPLAINT: Suspected left arm infection HISTORY OF PRESENT ILLNESS: Patient is an 88-year-old male who states that on Sunday of last week he tripped and caught his left forearm dorsal aspect along the edge of a cabinet. He states that he received a skin tear. He has been treating locally with topical antibiotic. Patient is unsure of his last tetanus shot. He states that over the course of the last few days he's had noticed increased redness, pain and swelling to the left forearm with maximal swelling and tenderness just distal to the left elbow. He denies any fevers or chills. He is concerned because he's had similar episodes in the past that usually heal quickly but he is also had a history of a leg infection that required inpatient treatment. REVIEW OF SYSTEMS: Respiratory: No cough, no dyspnea. Cardiovascular: No chest pain, no palpitations. Gastrointestinal: No vomiting, no abdominal pain. Musculoskeletal: No back pain. Left arm pain Allergies: Coded Allergies: celecoxib (Verified Adverse Reaction, Unknown, dizzy/ diaphoresis, 08/20/18) hydrocodone bit (Verified Adverse Reaction, Unknown, dizziness, 08/20/18) indomethacin (Verified Adverse Reaction, Unknown, 08/20/18) Home Meds Active Scripts Cephalexin (KEFLEX) 500 Mg Capsule, 500 MG PO Q6H, #28 CAP 0 Refills TAKE ONE CAPSULE BY MOUTH EVERY SIX HOURS Prov:YO STANFORD MD 08/20/18 Tamsulosin Hcl (FLOMAX) 0.4 Mg Cap.er.24h, 1 CAP PO DAILY for 90 Days, #90 CAP 0 Refills Prov:CIERRA SINGH MD 06/20/18 Losartan Potassium (LOSARTAN POTASSIUM) 100 Mg Tablet, 100 MG PO QDAY, #90 TAB 1 Refill Prov:JUANITA LLAMAS MD 04/30/18 Tramadol Hcl (TRAMADOL HCL) 50 Mg Tablet, 1-2 TAB PO Q6H PRN for PAIN, #60 TAB 0 Refills Prov:JUANITA LLAMAS MD 04/25/18 Atenolol (ATENOLOL) 25 Mg Tablet, 1 TAB PO QDAY, #90 TAB 3 Refills Prov:JUANITA LLAMAS MD 12/26/17 Simvastatin (SIMVASTATIN) 20 Mg Tablet, 1 TAB PO HS for 90 Days, #90 TAB 4 Refills Prov:JUANITA LLAMAS MD 11/30/17 Colchicine (Colchicine) 0.6 Mg Capsule, 1-2 CAP PO DIRECTED, #3 CAP 0 Refills 2 tabs po initial dose, 1 tab po one hour later Prov:JUANITA LLAMAS MD 05/04/17 Clopidogrel Bisulfate (PLAVIX) 75 Mg Tablet, 1 TAB PO QDAY, #90 TAB 3 Refills Prov:JUANITA LLAMAS MD 04/17/17 Reported Medications Sennosides/Docusate Sodium (SENOKOT-S TABLET) 1 Each Tablet, 1 TAB PO QDAY 04/25/18 Past Medical/Surgical History Past medical history for hyperlipidemia, hypertension, peptic ulcer disease, gout and osteoarthritis, history of MRSA treated in 2011, 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 Patient is anticoagulated with Plavix. Hx Smoking: Yes Smoking Status: Former Smoker Exposure to Second Hand Smoke?: Yes Hx Substance Use Disorder: No Hx Alcohol Use: No Constitutional Vital Sign - Last 24 Hours 08/20/18 08/20/18 08/20/18 08/20/18 09:38 09:45 10:00 10:15 Temp 98.2 Pulse 70 74 72 72 Resp 20 B/P (MAP) 153/69 Pulse Ox 92 91 90 91 O2 Delivery Room Air 08/20/18 08/20/18 08/20/18 08/20/18 10:30 10:39 10:45 11:00 Pulse 62 57 50 B/P (MAP) 134/62 (86) 125/63 (83) Pulse Ox 91 90 91 08/20/18 08/20/18 08/20/18 08/20/18 11:15 11:30 12:00 12:15 Pulse 60 53 76 B/P (MAP) 144/64 (90) 165/107 (126) Pulse Ox 91 91 91 Physical Exam General Appearance: The patient is alert, has no immediate need for airway protection and no current signs of toxicity. [ ] Eyes: Pupils equal and round no injection. Musculoskeletal: Neck: Neck is supple and non tender. Extremities have full range of motion. Examination of the right forearm reveals a healing skin tear to the dorsal aspect of the left forearm no obvious purulent drainage or active bleeding however there is some fairly extensive swelling and erythema to the forearm that is warm to the touch and tender. Medical Decision Making Data Points Result Diagram: 08/20/18 1020 08/20/18 1020 Laboratory Hematology Test 08/20/18 10:20 Red Blood Count 4.53 M/uL (4.00-5.60) Mean Corpuscular Volume 93.6 fL (80.0-96.0) Mean Corpuscular Hemoglobin 32.1 pg (26.0-33.0) Mean Corpuscular Hemoglobin Concent 34.3 g/dL (32.0-36.0) Red Cell Distribution Width 13.1 % (11.5-14.5) Mean Platelet Volume 7.8 fL (7.2-11.1) Neutrophils (%) (Auto) 70.1 % (39.4-72.5) Lymphocytes (%) (Auto) 19.2 % (17.6-49.6) Monocytes (%) (Auto) 8.9 % (4.1-12.4) Eosinophils (%) (Auto) 1.2 % (0.4-6.7) Basophils (%) (Auto) 0.6 % (0.3-1.4) Nucleated RBC Relative Count (auto) 0.1 /100WBC Neutrophils # (Auto) 4.9 K/uL (2.0-7.4) Lymphocytes # (Auto) 1.3 K/uL (1.3-3.6) Monocytes # (Auto) 0.6 K/uL (0.3-1.0) Eosinophils # (Auto) 0.1 K/uL (0.0-0.5) Basophils # (Auto) 0.0 K/uL (0.0-0.1) Nucleated RBC Absolute Count (auto) 0.00 K/uL Sodium Level 134 mmol/L (137-145) Potassium Level 4.7 mmol/L (3.5-5.0) Chloride Level 98 mmol/L (98-107) Carbon Dioxide Level 24 mmol/L (22-30) Blood Urea Nitrogen 15 mg/dl (9-21) Creatinine 1.00 mg/dl (0.66-1.25) Glomerular Filtration Rate Calc > 60.0 Random Glucose 116 mg/dl (75-110) Calcium Level 8.7 mg/dl (8.4-10.2) Chemistry Test 08/20/18 10:20 White Blood Count 7.0 k/uL (4.5-11.0) Red Blood Count 4.53 M/uL (4.00-5.60) Hemoglobin 14.5 g/dL (14.0-18.0) Hematocrit 42.4 % (42.0-52.0) Mean Corpuscular Volume 93.6 fL (80.0-96.0) Mean Corpuscular Hemoglobin 32.1 pg (26.0-33.0) Mean Corpuscular Hemoglobin Concent 34.3 g/dL (32.0-36.0) Red Cell Distribution Width 13.1 % (11.5-14.5) Platelet Count 200 K/uL (150-450) Mean Platelet Volume 7.8 fL (7.2-11.1) Neutrophils (%) (Auto) 70.1 % (39.4-72.5) Lymphocytes (%) (Auto) 19.2 % (17.6-49.6) Monocytes (%) (Auto) 8.9 % (4.1-12.4) Eosinophils (%) (Auto) 1.2 % (0.4-6.7) Basophils (%) (Auto) 0.6 % (0.3-1.4) Nucleated RBC Relative Count (auto) 0.1 /100WBC Neutrophils # (Auto) 4.9 K/uL (2.0-7.4) Lymphocytes # (Auto) 1.3 K/uL (1.3-3.6) Monocytes # (Auto) 0.6 K/uL (0.3-1.0) Eosinophils # (Auto) 0.1 K/uL (0.0-0.5) Basophils # (Auto) 0.0 K/uL (0.0-0.1) Nucleated RBC Absolute Count (auto) 0.00 K/uL Glomerular Filtration Rate Calc > 60.0 Calcium Level 8.7 mg/dl (8.4-10.2) EKG/Imaging Imaging FACILITY: [facility] PATIENT NAME: Pb Hendricks : 1930 MR: [id number] V: [id number] EXAM DATE: [id number] ORDERING PHYSICIAN: YO STANFORD TECHNOLOGIST: Location: [facility] Patient: Pb Hendricks : 1930 Visit/Account:[id number] Date of Sevice: 08/20/2018 Examination: Computed tomography left humerus with contrast HISTORY: Cellulitis of the left upper extremity. Further evaluate. TECHNIQUE: Transaxial computed marked images are obtained of the left upper arm following the administration of 75 mL [id number]. Multiplanar reformatted images were created in the coronal and sagittal planes. One of the following dose optimization techniques was utilized in the performance of this exam: Automated exposure control; adjustment of the mA and/or kV according to the patient's size; or use of an iterative reconstruction technique. Specific details can be referenced in the facility's radiology CT exam operational policy. COMPARISON: None. FINDINGS: Beginning at the shoulder, there are severe changes of glenohumeral joint osteoarthritis identified. There is loss of glenoid bone stock with an acquired glenoid retroversion. There is a large glenohumeral joint effusion which contains multiple joint bodies. The effusion extends to distend the biceps tendon sheath. No axillary adenopathy is seen. There is no evidence of acute humerus fracture. Beginning in the distal third of the upper arm, there is subcutaneous edema/stranding within the posterior/dorsal subcutaneous tissues. This becomes nearly circumferential distally at the elbow joint. There is associated skin thickening. At the level of the elbow, there is a low-attenuation fluid collection overlying the olecranon with peripheral enhancement. In the short axis, this measures up to 2.8 x 2.4 cm. This measures up to 4.1 cm craniocaudally. The subcutaneous edema appears centered about this collection. Subcutaneous edema extends into the forearm and outside the [id number]. No additional area of low attenuation/fluid is seen. Appearance and location of this collection would favor an olecranon bursitis. Differential is broad and would include inflammatory arthritis such as gout. Differential would also include trauma and hemorrhagic bursitis. In the appropriate setting this could be infectious. No flecks of gas are seen. No soft tissue wound is clearly identified. No intramuscular collection is seen. IMPRESSION: 1. Low-attenuation fluid collection with peripheral enhancement overlying the ol ecranon of the left proximal ulna. There is extensive subcutaneous edema and skin thickening extending proximal and distal to this collection. CT appearance would be consistent with an olecranon bursitis. As above, this could be related to trauma, infection or inflammatory arthropathies such as gout. Clinical correlation is necessary. 2. 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 Report Dictated By: Sunil Chavez at 08/20/2018 1:00 PM Report E-Signed By: Sunil Chavez at 08/20/2018 1:09 PM [id number] ED Course/Re-evaluation ED Course 08/20/2018 10:29:42 am weekly patient looks nontoxic and is afebrile but definite cellulitis to the right upper extremity comprising mostly of the left forearm. We will treat with IV Rocephin check CBC BMP and perform IV contrast of the left upper extremity. Decision to Disposition Date: Aug 20, 2018 Decision to Disposition Time: 13:30 Depart Departure Latest Vital Signs Vital Signs Date Time Temp Pulse Resp B/P (MAP) Pulse Ox O2 Delivery O2 Flow Rate FiO2 08/20/18 12:15 76 91 08/20/18 12:00 165/107 (126) 08/20/18 09:38 98.2 20 Room Air Impression: Primary Impression: Cellulitis Condition: Improved Disposition: HOME OR SELF-CARE Referrals: CIERRA SINGH MD (PCP) New Scripts Cephalexin (KEFLEX) 500 Mg Capsule 500 MG PO Q6H, #28 CAP 0 Refills TAKE ONE CAPSULE BY MOUTH EVERY SIX HOURS Prov: YO STANFORD MD 08/20/18 Patient Instructions: Cellulitis (DC) Additional Instructions: Take your antibiotics as directed. He should take a dose tonight with dinner and then one before bedtime and then tomorrow it will be 4 times a day roughly every 6 hours. Take the antibiotics until completed. If at any point you worsen with fever or worsening pain or redness you should return to the emergency department immediately or if the symptoms have not resolved after completion of antibiotics you should be rechecked by your primary care provider or seen again in the emergency department. Problem Qualifiers Primary Impression: Cellulitis Site of cellulitis: extremity Site of cellulitis of extremity: upper extremity Laterality: left Qualified Codes: L03.114 - Cellulitis of left upper limb YO STANFORD MD Aug 20, 2018 10:26
[2018-08-20 10:34] LABS: PLATELET COUNT, AUTOMATED 200 K/uL (150-450)
[2018-08-20] MEDS ORDERED: IOPAMIDOL 76% 100 ML INFUS BTL 100 ML ONE (11:31)
[2018-08-20 12:00] VITALS: BP 165/107
--- NOTE | 2018-08-20 13:15 | RADIOLOGY IMAGING REPORT ---
FACILITY: [facility] PATIENT NAME: Pb Hendricks : 1930 MR: [id number] V: [id number] EXAM DATE: ORDERING PHYSICIAN: YO STANFORD TECHNOLOGIST: Location: [facility] Patient: Pb Hendricks : 1930 Visit/Account:[id number] Date of Sevice: 08/20/2018 Examination: Computed tomography left humerus with contrast HISTORY: Cellulitis of the left upper extremity. Further evaluate. TECHNIQUE: Transaxial computed marked images are obtained of the left upper arm following the adminis tration of 75 mL Isovue-370. Multiplanar reformatted images were created in the coronal and sagittal planes. One of the following dose optimization techniques was utilized in the performance of this exam: Autom ated exposure control; adjustment of the mA and/or kV according to the patient's size; or use of an i terative reconstruction technique. Specific details can be referenced in the facility's radiology C T exam operational policy. COMPARISON: None. FINDINGS: Beginning at the shoulder, there are severe changes of glenohumeral joint osteoarthritis identified. There is loss of glenoid bone stock with an acquired glenoid retroversion. There is a large glenohume ral joint effusion which contains multiple joint bodies. The effusion extends to distend the biceps t endon sheath. No axillary adenopathy is seen. There is no evidence of acute humerus fracture. Beginning in the distal third of the upper arm, there is subcutaneous edema/stranding within the post erior/dorsal subcutaneous tissues. This becomes nearly circumferential distally at the elbow joint. T here is associated skin thickening. At the level of the elbow, there is a low-attenuation fluid colle ction overlying the olecranon with peripheral enhancement. In the short axis, this measures up to 2.8 x 2.4 cm. This measures up to 4.1 cm craniocaudally. The subcutaneous edema appears centered about t his collection. Subcutaneous edema extends into the forearm and outside the [id number]. No additio nal area of low attenuation/fluid is seen. Appearance and location of this collection would favor an olecranon bursitis. Differential is broad and would include inflammatory arthritis such as gout. Diff erential would also include trauma and hemorrhagic bursitis. In the appropriate setting this could be infectious. No flecks of gas are seen. No soft tissue wound is clearly identified. No intramuscular collection is seen. IMPRESSION: 1. Low-attenuation fluid collection with peripheral enhancement overlying the olecranon of the left p roximal ulna. There is extensive subcutaneous edema and skin thickening extending proximal and distal to this collection. CT appearance would be consistent with an olecranon bursitis. As above, this cou ld be related to trauma, infection or inflammatory arthropathies such as gout. Clinical correlation i s necessary. 2. 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 Report Dictated By: Sunil Chavez at 08/20/2018 1:00 PM Report E-Signed By: Sunil Chavez at 08/20/2018 1:09 PM WSN:[id number]
--- NOTE | 2018-08-20 13:27 | RADIOLOGY IMAGING REPORT ---
FACILITY: [facility] PATIENT NAME: Pb Hendricks : 1930 MR: [id number] V: [id number] EXAM DATE: ORDERING PHYSICIAN: YO STANFORD TECHNOLOGIST: Location: [facility] Patient: Pb Hendricks : 1930 Visit/Account:[id number] Date of Sevice: 08/20/2018 Examination: Computed tomography left elbow and left forearm with contrast HISTORY: Left upper extremity cellulitis. Evaluate for abscess. TECHNIQUE: Transaxial computed tomography images are obtained of the left elbow and left forearm. The se images were obtained in conjunction with a left upper arm CT scan. Images were obtained following the administration of 75 mL of Isovue-370. Multiplanar reformatted images were created in the coronal and sagittal planes. One of the following dose optimization techniques was utilized in the performance of this exam: Autom ated exposure control; adjustment of the mA and/or kV according to the patient's size; or use of an i terative reconstruction technique. Specific details can be referenced in the facility's radiology C T exam operational policy. COMPARISON: Exam is reviewed in conjunction with today's CT upper arm study. FINDINGS: In keeping with today's upper arm findings, there is circumferential subcutaneous edema helene ntified about the left elbow. This extends proximally into the upper arm and extends distally along t he forearm. There is associated skin thickening. The edema and skin thickening appears centered about a low-attenuation collection which overlies the olecranon of the proximal ulna. This measures 4.1 x 2.8 x 2.4 cm in size and is consistent with an olecranon bursa. Findings are consistent with an olecr anon bursitis. Etiologies would include inflammatory arthropathies such as gout, trauma or infection. Clinical correlation is necessary. No flecks of gas are seen. At the elbow, the joint space is maintained. No evidence of osteoarthritis. No joint effusion is seen . The subcutaneous edema extends circumferential into the forearm. This extends to the edge of the fiel d-of-view just proximal to the wrist. No other well-defined fluid collection is seen. The flexor and extensor compartment musculature appears normal. No osseous abnormality is identified of the included portions of the radius and ulna. The most distal radius and ulna are excluded from the image. No flecks of gas are seen within the soft tissues. IMPRESSION: 1. CT findings compatible with olecranon bursitis overlying the left elbow with extensive subcutaneou s edema and skin thickening. Differential would include inflammatory arthropathies such as gout, trau ma or infection. Correlate clinically. 2. No evidence of soft tissue gas or additional suspicious fluid collections. 3. Normal elbow joint. No joint effusion or bone destruction. No evidence of septic arthropathy. 4. Unremarkable appearance of the included radius, ulna and forearm musculature. Report Dictated By: Sunil Chavez at 08/20/2018 1:10 PM Report E-Signed By: Sunil Chavez at 08/20/2018 1:23 PM WSN:[id number]
--- NOTE | 2018-08-20 13:28 | RADIOLOGY IMAGING REPORT ---
FACILITY: [facility] PATIENT NAME: Pb Hendricks : 1930 MR: [id number] V: [id number] EXAM DATE: ORDERING PHYSICIAN: YO STANFORD TECHNOLOGIST: [place] [facility] [place] Pb Hendricks : 1930 Visit/Account:[id number] Date of Sevice: 08/20/2018 Examination: Computed tomography left elbow and left forearm with contrast HISTORY: Left upper extremity cellulitis. Evaluate for abscess. TECHNIQUE: Transaxial computed tomography images are obtained of the left elbow and left forearm. The se images were obtained in conjunction with a left upper arm CT scan. Images were obtained following the administration of 75 mL of Isovue-370. Multiplanar reformatted images were created in the coronal and sagittal planes. One of the following dose optimization techniques was utilized in the performance of this exam: Autom ated exposure control; adjustment of the mA and/or kV according to the patient's size; or use of an i terative reconstruction technique. Specific details can be referenced in the facility's radiology C T exam operational policy. COMPARISON: Exam is reviewed in conjunction with today's CT upper arm study. FINDINGS: In keeping with today's upper arm findings, there is circumferential subcutaneous edema helene ntified about the left elbow. This extends proximally into the upper arm and extends distally along t he forearm. There is associated skin thickening. The edema and skin thickening appears centered about a low-attenuation collection which overlies the olecranon of the proximal ulna. This measures 4.1 x 2.8 x 2.4 cm in size and is consistent with an olecranon bursa. Findings are consistent with an olecr anon bursitis. Etiologies would include inflammatory arthropathies such as gout, trauma or infection. Clinical correlation is necessary. No flecks of gas are seen. At the elbow, the joint space is maintained. No evidence of osteoarthritis. No joint effusion is seen . The subcutaneous edema extends circumferential into the forearm. This extends to the edge of the fiel d-of-view just proximal to the wrist. No other well-defined fluid collection is seen. The flexor and extensor compartment musculature appears normal. No osseous abnormality is identified of the included portions of the radius and ulna. The most distal radius and ulna are excluded from the image. No flecks of gas are seen within the soft tissues. IMPRESSION: 1. CT findings compatible with olecranon bursitis overlying the left elbow with extensive subcutaneou s edema and skin thickening. Differential would include inflammatory arthropathies such as gout, trau ma or infection. Correlate clinically. 2. No evidence of soft tissue gas or additional suspicious fluid collections. 3. Normal elbow joint. No joint effusion or bone destruction. No evidence of septic arthropathy. 4. Unremarkable appearance of the included radius, ulna and forearm musculature. Report Dictated By: Sunil Chavez at 08/20/2018 1:10 PM Report E-Signed By: Sunil Chavez at 08/20/2018 1:23 PM WSN:[id number]
[2018-08-20] MEDS ORDERED: CEPH-13 PO (13:31)
[2018-08-26] MEDS ORDERED: CLOP75TA43 PO (08:52)
== END 2018-08-20 13:44 | disposition home or self-care (01) ==
LOC: ER 10:02
DX: L03.114 Cellulitis of left upper limb (principal)
CPT/HCPCS: 73201; 85025; 96374; 99284; J0696; Q9967; 82310; 82374; 82435; 82565; 82947; 84132; 84295; 84520

== ENCOUNTER → 2018-09-05 | Outpatient (CLI) | payer MEDICARE, BC ==
[~2018-09-05] MED LIST changes: +ACET-2146 PO; +CEPH-13 PO; +FINA5TAB67 PO; +MELA1TAB23 PO
[2018-09-05 10:21] LABS: PLATELET COUNT, AUTOMATED 209 K/uL (150-450)
== END ==
LOC: LAB 10:08
PROVIDERS: ATTEND Family Medicine
DX: L03.90 Cellulitis, unspecified (principal)
CPT/HCPCS: 36415; 82040; 82247; 82310; 82374; 82435; 82565; 82947; 84075; 84132; 84155; 84295; 84450; 84460; 84520; 85025

== ENCOUNTER 2018-09-08 09:15 | Emergency (ER) | payer MEDICARE, BC ==
--- NOTE | 2018-09-08 09:29 | ER Report ---
History and Physical Time Seen By MD: 09:27 Hx. of Stated Complaint: pain/clicking in right knee HPI/ROS CHIEF COMPLAINT: Right knee swelling HISTORY OF PRESENT ILLNESS: Patient is an 88-year-old male here with complaints of right knee swelling and suspected effusion. Patient reports that he felt a twinge in his knee and subsequent development of pain since Sunday. Patient does report a remote history of gout. There is no erythema or rubor on examination, patient is neurovascularly intact distal to the knee. Denies trauma to the joint. Current level pain is inhibiting the patient's range of motion and weightbearing. REVIEW OF SYSTEMS: Constitutional: No fever, no chills. Musculoskeletal: Right knee swelling and ballotable effusion Skin: No rashes. Neurological: Neurovascular exam intact distal to the right knee Allergies: Coded Allergies: celecoxib (Verified Adverse Reaction, Unknown, dizzy/ diaphoresis, 09/08/18) hydrocodone bit (Verified Adverse Reaction, Unknown, dizziness, 09/08/18) indomethacin (Verified Adverse Reaction, Unknown, Dizzy, 09/08/18) Home Meds Active Scripts Cephalexin (KEFLEX) 500 Mg Capsule, 500 MG PO Q6H, #20 CAP 0 Refills TAKE ONE CAPSULE BY MOUTH EVERY SIX HOURS Prov:CIERRA SINGH MD 09/04/18 Finasteride (FINASTERIDE) 5 Mg Tablet, 1 TAB PO QDAY for 90 Days, #90 TAB Prov:CIERRA SINGH MD 09/02/18 Tramadol Hcl (TRAMADOL HCL) 50 Mg Tablet, 1-2 TAB PO Q6H PRN for PAIN, #60 TAB 0 Refills Prov:CIERRA SINGH MD 08/29/18 Clopidogrel Bisulfate (PLAVIX) 75 Mg Tablet, 1 TAB PO QDAY for 30 Days, #30 TAB Prov:CIERRA SINGH MD 08/26/18 Tamsulosin Hcl (FLOMAX) 0.4 Mg Cap.er.24h, 1 CAP PO DAILY for 90 Days, #90 CAP 0 Refills Prov:CIERRA SINGH MD 06/20/18 Losartan Potassium (LOSARTAN POTASSIUM) 100 Mg Tablet, 100 MG PO QDAY, #90 TAB 1 Refill Prov:JUANITA LLAMAS MD 04/30/18 Simvastatin (SIMVASTATIN) 20 Mg Tablet, 1 TAB PO HS for 90 Days, #90 TAB 4 Refills Prov:JUANITA LLAMAS MD 11/30/17 Reported Medications Acetaminophen 500 Mg Tab (ACETAMINOPHEN EXTRA STRENGTH) 500 Mg Tablet, 2 TAB PO BID 09/04/18 Melatonin (MELATONIN) Unknown Strength Tablet, 1 TAB PO HS 09/02/18 Sennosides/Docusate Sodium (SENOKOT-S TABLET) 1 Each Tablet, 1 TAB PO QDAY 04/25/18 Discontinued Scripts Atenolol (ATENOLOL) 25 Mg Tablet, 1 TAB PO QDAY, #90 TAB 3 Refills Prov:JUANITA LLAMAS MD 12/26/17 Colchicine (Colchicine) 0.6 Mg Capsule, 1-2 CAP PO DIRECTED, #3 CAP 0 Refills 2 tabs po initial dose, 1 tab po one hour later Prov:JUANITA LLAMAS MD 05/04/17 Hx Smoking: Yes Smoking Status: Former Smoker Exposure to Second Hand Smoke?: Yes Hx Substance Use Disorder: No Hx Alcohol Use: No Constitutional Vital Sign - Last 24 Hours 09/08/18 09/08/18 09/08/18 09/08/18 09:22 09:30 09:59 10:00 Temp 98.1 Pulse 109 104 76 Resp 20 B/P (MAP) 139/68 143/83 (103) Pulse Ox 92 90 91 O2 Delivery Room Air 09/08/18 10:30 Pulse 80 Pulse Ox 91 Physical Exam General Appearance: The patient is alert, has no immediate need for airway protection and no signs of toxicity. No acute distress Neurological: Neurovascular exam intact distal to the right knee Skin: Warm and dry, no rashes. No erythema or warmth to the touch Musculoskeletal: Edema and ballotable effusion to the right knee DIFFERENTIAL DIAGNOSIS: After history and physical exam differential diagnosis was considered for hemarthrosis, gout, pseudogout, septic joint Medical Decision Making Data Points Laboratory Hematology Test 09/08/18 10:10 Body Fluid Type Synovial fluid Body Fluid WBC 27481 Body Fluid RBC 883720 Body Fluid Neutrophils 95 % Body Fluid Lymphocytes 2 % Body Fluid Monocytes 3 % Body Fluid Eosinophils 0 % Body Fluid Basophils 0 % Body Fluid Crystals None Chemistry Test 09/08/18 10:10 Body Fluid Type Synovial fluid Body Fluid WBC 13750 Body Fluid RBC 846067 Body Fluid Neutrophils 95 % Body Fluid Lymphocytes 2 % Body Fluid Monocytes 3 % Body Fluid Eosinophils 0 % Body Fluid Basophils 0 % Body Fluid Crystals None EKG/Imaging Imaging FACILITY: [facility] PATIENT NAME: Pb Hendricks : 1930 MR: [id number] V: [id number] EXAM DATE: ORDERING PHYSICIAN: YOUNG MEAD TECHNOLOGIST: Location: [facility] Patient: Pb Hendricks : 1930 Visit/Account:[id number] Date of Sevice: 09/08/2018 Right knee Indication: Arthritis. Swelling on Sunday Comparison: None available Findings: 3 views right knee were obtained. Subtle chondrocalcinosis is noted. Mild narrowing is seen in the medial and lateral joint space. Marginal osteophytic changes seen laterally. Moderate degenerative changes in the patellofemoral joint. Joint effusion is appreciated. Soft tissue calcifications overlie the joint space. Atherosclerotic arterial calcifications are noted. IMPRESSION: 1. Chondrocalcinosis with tricompartmental degenerative change, most notable in the patellofemoral joint. Joint effusion. No acute bony finding. ED Course/Re-evaluation ED Course Patient is an 88-year-old male here with complaints of right knee pain and swelling since Sunday. There is no erythema or warmth to the touch. There is a ballotable effusion, x-ray of the knee was completed and showed chronic degenerative changes. I did perform a joint aspiration of the right knee which was sent out for analysis. Analysis came back with a white blood cell count of 33,552 with 95% neutrophils with greater than 100,000 red blood cells without crystals identified. The joint is not erythematous, has good mobility, there is significant tenderness on range of motion there is no warmth to the touch. I did discuss the patient with Dr. Jessica with orthopedics who recommended treating with anti-inflammatories and close follow-up. Patient is currently being treated for a cellulitis with Keflex and patient was recommended to continue this course. It is unclear at this time whether or not the patient has mild suppression of bacterial infection due to Keflex being on board or has an early bacterial joint infection. Joint aspiration of approximately 60 mL of serosanguineous fluid with hyperviscosity was evacuated from the joint space and an Efe wrap was applied. Patient was advised to return promptly if he developed redness, warmth to the touch, fevers, decreased range of motion and he voiced understanding of plan. Recommended 24-hour follow-up with Dr. Singh and close follow-up with [facility]. Gram stain and culture of the aspirated fluid was pending at time of discharge. Will follow Gram stain and culture and contact the patient if these come back positive. Patient was stable at time of discharge. Returned precautions provided. Procedure Right knee joint arthrocentesis: Patient's right lateral knee was sterilized using chlorhexidine. Approximately 4 mL of 1% lidocaine with epinephrine was instilled into the right superior lateral aspect of the right knee. An 18-gauge needle with an attached 60 mL syringe was used to enter the joint space and aspirated a serosanguineous fluid with high viscosity with no purulence. 60 mL of viscous material was aspirated and sent for Gram stain, culture, fluid analysis, crystal analysis. An Efe wrap was applied as a compression method to the right knee to minimize reaccumulation. Hemostasis was achieved. Patient tolerated procedure well. Decision to Disposition Date: Sep 08, 2018 Decision to Disposition Time: 11:57 Depart Departure Latest Vital Signs Vital Signs Date Time Temp Pulse Resp B/P (MAP) Pulse Ox O2 Delivery O2 Flow Rate FiO2 09/08/18 10:30 80 91 09/08/18 09:59 143/83 (103) 09/08/18 09:22 98.1 20 Room Air Impression: Primary Impression: Knee effusion, right Condition: Improved Disposition: HOME OR SELF-CARE Referrals: CIERRA SINGH MD (PCP) Patient Instructions: Leg Pain (ED) Additional Instructions: Please drink plenty of water. You may take ibuprofen or naproxen as needed for inflammation and knee swelling. Your knee aspiration came back as indeterminant and may represent an early bacterial infection versus inflammatory knee effusion. In the next 24 hours we will of more information regarding the Gram st ain and culture of that fluid. Please return immediately if you develop redness, warmth to the touch, inability to move the knee as this may represent a bacterial infection of the knee which will require further treatment. Please continue your antibiotic as prescribed. Please follow-up with Dr. Singh in the next 24-48 hours, orthopedics at [facility] if symptoms persist. YOUNG MEAD DO Sep 08, 2018 09:29
[2018-09-08 09:59] VITALS: BP 143/83
--- NOTE | 2018-09-08 10:18 | RADIOLOGY IMAGING REPORT ---
FACILITY: [facility] PATIENT NAME: Pb Hendricks : 1930 MR: [id number] V: [id number] EXAM DATE: ORDERING PHYSICIAN: YOUNG MEAD TECHNOLOGIST: Location: [facility] Patient: Pb Hendricks : 1930 Visit/Account:[id number] Date of Sevice: 09/08/2018 Right knee Indication: Arthritis. Swelling on Sunday Comparison: None available Findings: 3 views right knee were obtained. Subtle chondrocalcinosis is noted. Mild narrowing is seen in the medial and lateral joint space. Rubi inal osteophytic changes seen laterally. Moderate degenerative changes in the patellofemoral joint. Joint effusion is appreciated. Soft tissue calcifications overlie the joint space. Atherosclerotic arterial calcifications are noted. IMPRESSION: 1. Chondrocalcinosis with tricompartmental degenerative change, most notable in the patellofemoral clark int. Joint effusion. No acute bony finding. Report Dictated By: Alfredo Roach MD at 09/08/2018 10:10 AM Report E-Signed By: Alfredo Roach MD at 09/08/2018 10:11 AM WSN:[id number]
[2018-09-16] MEDS ORDERED: TAMS0.4C25 PO (10:19)
[2018-09-17] MEDS ORDERED: CLOP75TA43 PO (16:29)
== END 2018-09-08 12:25 | disposition home or self-care (01) ==
LOC: ER 09:41
DX: M25.461 Effusion, right knee (principal)
CPT/HCPCS: 87071; 89050; 89060; 99283

== ENCOUNTER → 2018-09-27 | Outpatient (CLI) | payer MEDICARE, BC | LOC: RAD 03:56 | PROVIDERS: ATTEND Family Medicine | DX: I50.30 Unspecified diastolic (congestive) heart failure (principal) | CPT/HCPCS: 93306 ==